=== PATIENT | female | born 1985 | race Two or more races ===

== ENCOUNTER 2021-02-09 12:45 | Emergency (ER) | payer OTHER ==
[~2021-02-09] VITALS: Ht 165.1 cm; Wt 65.9 kg
--- NOTE | 2021-02-09 13:18 | NUR ---
PT AMBULATORY TO ROOM 26 W/ C/O LLQ ABD PAIN. PT STATES SHE WAS SEEN FOR IT AND WAS DX W/ DIVERTICULITIS. PT STATES THEY ARE ON VACATION AND PT FORGOT ABX AND PAIN MEDICATION AT HOME. PT STATES NO N/V/D. LBM YESTERDAY. PT RESTINIG ON GURNEY. NADN. MONITORS APPLIED. VSS. WARM BLANKET PROVIDED. CALL LIGHT IN REACH.
[2021-02-09] MEDS ORDERED: MORPHINE SULFATE 4 MG/ML, 1ML ONE ×2 (13:41→14:11)
[2021-02-09] MEDS ORDERED: ONDANSETRON 2MG/ML, 2ML ONE (13:41)
[2021-02-09] MEDS: MORPHINE SULFATE 4 MG/ML, 1ML IVPush PRN ×2 (13:43→14:12)
[2021-02-09 13:51] LABS: BASOPHILS % (AUTO) 0 % (0-1); EOSINOPHILS % (AUTO) 0 % (1-7); LYMPHOCYTES % (AUTO) 20 % (22-44); MEAN CORPUSCULAR HEMOGLOBIN 25.6 pg (27.0-34.8); MEAN CORPUSCULAR HGB CONC 32.9 g/dL (32.4-35.8); MEAN PLATELET VOLUME 8.7 fL (7.4-10.4); MONOCYTES % (AUTO) 5 % (2-9); NEUTROPHILS % (AUTO) 75 % (42-75); PLATELET COUNT 271 x10^3/uL (130-400); RED BLOOD COUNT 5.48 x10^6/uL (3.82-5.3); RED CELL DISTRIBUTION WIDTH 15.2 % (9.6-15.2)
[2021-02-09 13:52] LABS: MICROSCOPIC INDICATED
[2021-02-09] MEDS ORDERED: SODIUM CHLORIDE FLUSH 10ML SYR IVF ONE (14:00)
[2021-02-09] MEDS ORDERED: ONDANSETRON 2MG/ML, 2ML IVPush ONE (14:00)
[2021-02-09] MEDS ORDERED: SODIUM CHLORIDE 0.9% 1,000ML IVBOLUS ONE (14:00)
[2021-02-09 14:01] LABS: ALANINE AMINOTRANSFERASE 34 U/L (12-78); ALBUMIN 3.8 g/dL (3.4-5.0); ANION GAP 4 mmol/L (5-15); CALCIUM 9.1 mg/dL (8.5-10.1); CHLORIDE 108 mmol/L (98-107)
[2021-02-09 14:06] LABS: ALKALINE PHOSPHATASE 81 U/L (45-117); BILIRUBIN,TOTAL 0.3 mg/dL (0.2-1.0); TOTAL PROTEIN 7.8 g/dL (6.4-8.2)
--- NOTE | 2021-02-09 14:09 | NUR ---
PT RESTING ON GURNEY. C/O PAIN 04/19. PT TO BE REMEDICATED PER OCT.
[2021-02-09] MEDS ORDERED: KETOROLAC 30 MG/1 ML ONE (14:58)
[2021-02-09] MEDS ORDERED: KETOROLAC 30 MG/1 ML IVPush ONE (15:00)
[2021-02-09] MEDS ORDERED: KETOROLAC 15 MG/1ML IVPush ONE (15:00)
--- NOTE | 2021-02-09 15:07 | NUR ---
TASK RN: PT MEDICATED PER MAR
[2021-02-09 15:13] VITALS: BP 120/77
--- NOTE | 2021-02-09 15:13 | NUR ---
PT RESTING ON GURNEY. NADN. BERRIOS.
== END 2021-02-09 15:47 | disposition home or self-care (01) ==
LOC: ED 15:27
DX: R10.32 Left lower quadrant pain (principal); R11.0 Nausea
CPT/HCPCS: 36415; 80053; 81001; 83690; 84703; 85025; 87086; 96361; 96374; 96375; 99284; J1885; J2270; J2405; J7030